=== PATIENT | female | born 1990 | race African-American/Black ===

== ENCOUNTER 2016-11-13 20:51 | Emergency (ER) | payer OTHER ==
[2016-11-13 21:03] VITALS: BP 115/79; BMI 26.4
[2016-11-13] MEDS ORDERED: ZOFRAN TAB 4 MG PO ONE ×2 (21:31→22:01)
--- NOTE | 2016-11-13 21:34 | DR.GENAD ---
HPI - Complaint/Symptoms Chief Complaint Doctors Comments: Became over heated at work with nausea and headach, achy now. Chief Complaint:: HEADACHE,NAUSEA,BODY ACHES - Source History Provided: Patient - Mode of Arrival Mode of Arrival: Ambulatory - Timing Onset of Chief Complaint: 11/13/16 Came on: Gradually - Duration Duration: Constant Duration: Hours - Location Location: all over - Severity Severity: Mild - Modifying Factors Worsens:: work in heat PMH - PMH Past Medical History: Yes Past Medical History: Anemia Past Surgical History: Yes Surgical History: Other - Family History History of Family Medical Conditions: Yes Family Medical History: Cancer - Social History Does patient currently use any type of tobacco product: No Have you used tobacco products in the last 12 months: No Type of Tobacco Use: None Does any household member use tobacco: No Alcohol Use: None Do you use any recreational Drugs:: No Lives With: Family Lives Where: Home - infectious screening In the last 2 months have you had wt loss of >10#?: NO Have you had fever, night sweats or hemotysis?: No Have you traveled outside the country in the last 6 months?: No Isolation: Standard ROS - Review of Systems Constitutional: No Symptoms Reported Eyes: No Symptoms Reported ENTM: No Symptoms Reported Respiratoy: No Symptoms Reported Cardiovascular: No Symptoms Reported Gastrointestinal/Abdominal: Nausea Genitourinary: No Symptoms Reported Neurological: Headache Musculoskeletal: Muscle Pain (achy) Integumentary: No Symptoms Reported Hematologic/Lymphatic: No Symptoms Reported Endocrine: No Symptoms Reported Psychiatric: No Symptoms Reported PE - Vital Signs Vitals: Temperature 98.3 F Pulse Rate 113 Respiratory Rate 18 Blood Pressure [Left Arm] 103/73 Blood Pressure 115/79 O2 Sat by Pulse Oximetry 100 - General Limitations: No Limitations General Appearance: Alert, In No Apparent Distress - Head Head Exam: Normal Inspection - Eyes Eye exam: Normal Appearance, EOMI. negative: Scleral Icterus, Conjunctival Injection - ENT ENT Exam: Normal Exam, Normal Oropharynx External Ear Exam: Normal External Inspection Nose Exam: Normal Nose Exam - Neck Neck Exam: Normal Inspection, Full ROM, Trachea Midline - Chest Chest Inspection: Normal Inspection - Respiratory Respiratory Exam: Normal Lung Sounds Bilat. negative: Accessory Muscle Use, Respiratory Distress Respiratory Exam: Bilateral Clear to Auscultation - Cardiovascular Cardiovascular Exam: Tachycardia - Abdominal Exam Abdominal Exam: Normal Inspection, Normal Bowel Sounds, Soft. negative: Distention, Tenderness - Back Back Exam: Normal Inspection, Full ROM. negative: Tenderness - Neurologic Neurological Exam: Alert, Oriented X3, CN II-XII Intact - Psychiatric Psychiatric Exam: Flat Affect - Skin Skin Exam: Intact, Normal Color ROR - Labs Reviewed Result Diagrams: 11/13/16 21:41 11/13/16 21:41 Laboratory: WBC 5.7 X10^3/uL (3.6-10.0) 11/13/16 21:41 RBC 4.74 X10^6/uL (3.5-5.4) 11/13/16 21:41 Hgb 13.9 g/dL (12.0-16.0) 11/13/16 21:41 Hct 40.7 % (36.0-47.0) 11/13/16 21:41 MCV 85.9 fL (80.0-100.0) 11/13/16 21:41 MCH 29.3 pg (27.0-34.0) 11/13/16 21:41 MCHC 34.2 g/dL (33.0-35.0) 11/13/16 21:41 RDW 13.4 % (11.6-16.5) 11/13/16 21:41 Plt Count 128 X10^3/uL (150.0-450.0) L 11/13/16 21:41 MPV 11.0 fL (7.4-11.0) 11/13/16 21:41 Neut % 82.2 % (42.0-75.0) H 11/13/16 21:41 Lymph % 11.3 % (21.0-51.0) L 11/13/16 21:41 [place] % 6.1 % (0.0-13.0) 11/13/16 21:41 Eos % 0.1 % (0.9-2.9) L 11/13/16 21:41 Baso % 0.3 % (0.2-1.0) 11/13/16 21:41 Neut # 4.7 x10^3/uL (2.2-4.8) 11/13/16 21:41 Lymph # 0.6 X10^3/uL (1.3-2.9) L 11/13/16 21:41 [place] # 0.3 x10^3/uL (0.3-0.8) 11/13/16 21:41 Eos # 0.0 x10^3/uL (0.0-0.2) 11/13/16 21:41 Baso # 0.0 X10^3/uL (0.0-0.1) 11/13/16 21:41 Absolute Nucleated RBC 0.0 /100WBC 11/13/16 21:41 Sodium 139 mmol/L (136-145) 11/13/16 21:41 Corrected Sodium TNP 11/13/16 21:41 Potassium 3.0 mmol/L (3.5-5.1) L* 11/13/16 21:41 Chloride 101 mmol/L (98-107) 11/13/16 21:41 Carbon Dioxide 24.2 mmol/L (21-32) 11/13/16 21:41 BUN 6 mg/dL (7-18) L 11/13/16 21:41 Creatinine 0.94 mg/dL (0.55-1.02) 11/13/16 21:41 Est GFR (MDRD) Af Amer > 60 (>60) 11/13/16 21:41 Est GFR (MDRD) Non-Af > 60 (>60) 11/13/16 21:41 Glucose 94 mg/dL (65-99) 11/13/16 21:41 Calcium 9.1 mg/dL (8.5-10.1) 11/13/16 21:41 Creatine Kinase 121 Units/L (26-192) 11/13/16 21:41 HCG, Qual Negative <10 mIU/mL 11/13/16 21:41 Specimen Type Clean catch urine 11/13/16 23:20 Urine Color Yellow (YELLOW) 11/13/16 23:20 Urine Appearance Slightly hazy (CLEAR) 11/13/16 23:20 Urine pH 6.0 (5.0 - 8.0) 11/13/16 23:20 Ur Specific [place] 1.015 (1.000-1.030) 11/13/16 23:20 Urine Protein Negative (NEGATIVE) 11/13/16 23:20 Urine Glucose (UA) Negative (NEGATIVE) 11/13/16 23:20 Urine Ketones 3+ (NEGATIVE) 11/13/16 23:20 Urine Occult Blood Negative (NEGATIVE) 11/13/16 23:20 Urine Nitrite Negative (NEGATIVE) 11/13/16 23:20 Urine Bilirubin Negative (NEGATIVE) 11/13/16 23:20 Urine Urobilinogen Normal (NORMAL) 11/13/16 23:20 Ur Leukocyte Esterase 3+ (NEGATIVE) 11/13/16 23:20 Urine RBC 0-2 /HPF (NEGATIVE) 11/13/16 23:20 Urine WBC 10-12 /HPF (NEGATIVE) 11/13/16 23:20 Ur Squamous Epith Cells Few /HPF (NEGATIVE) 11/13/16 23:20 Urine Bacteria 1+ /HPF (NEGATIVE) 11/13/16 23:20 Urine Mucus Few /HPF (NEGATIVE) 11/13/16 23:20 Ur Culture Indicated? Yes/culture set up 11/13/16 23:20 - Diagnosis Discharge Problem: Hypokalemia UTI (urinary tract infection) Qualifiers: Urinary tract infection type: acute cystitis Hematuria presence: with hematuria Qualified Code(s): N30.01 - Acute cystitis with hematuria - Discharge Plan Condition: Stable - Follow ups/Referrals Follow ups/Referrals: ,Misc [Primary Care Provider] - 3 days - Instructions
[2016-11-13 21:49] LABS: BASOPHILS % (AUTO) 0.3 % (0.2-1.0); EOSINOPHILS % (AUTO) 0.1 % (0.9-2.9); HEMATOCRIT 40.7 % (36.0-47.0); HEMOGLOBIN 13.9 g/dL (12.0-16.0); LYMPHOCYTES # (AUTO) 0.6 X10^3/uL (1.3-2.9); LYMPHOCYTES % (AUTO) 11.3 % (21.0-51.0); MEAN CORPUSCULAR HEMOGLOBIN 29.3 pg (27.0-34.0); MEAN CORPUSCULAR HGB CONC 34.2 g/dL (33.0-35.0); MEAN CORPUSCULAR VOLUME 85.9 fL (80.0-100.0); MONOCYTES # (AUTO) 0.3 x10^3/uL (0.3-0.8); MONOCYTES % (AUTO) 6.1 % (0.0-13.0); NEUTROPHILS # (AUTO) 4.7 x10^3/uL (2.2-4.8); NEUTROPHILS % (AUTO) 82.2 % (42.0-75.0); PLATELET COUNT 128 X10^3/uL (150.0-450.0); RED BLOOD COUNT 4.74 X10^6/uL (3.5-5.4); RED CELL DISTRIBUTION WIDTH 13.4 % (11.6-16.5); WHITE BLOOD COUNT 5.7 X10^3/uL (3.6-10.0)
[2016-11-13 21:55] LABS: BLOOD UREA NITROGEN 6 mg/dL (7-18); CALCIUM 9.1 mg/dL (8.5-10.1); CARBON DIOXIDE 24.2 mmol/L (21-32); CHLORIDE 101 mmol/L (98-107); CREATININE 0.94 mg/dL (0.55-1.02); GLUCOSE 94 mg/dL (65-99); SODIUM 139 mmol/L (136-145); eGFR BLACK RACES > 60 (>60); eGFR NON BLACK RACES > 60 (>60)
[2016-11-13 21:57] LABS: SERUM PREGNANCY TEST, QUAL NEGATIVE <10 mIU/mL
[2016-11-13 22:00] LABS: CREATINE KINASE 121 Units/L (26-192)
[2016-11-13] MEDS ORDERED: K-LYTE EFFERVESCENT PO ONE (22:03)
[2016-11-13] MEDS ORDERED: ZOFRAN TAB 4 MG ONE (22:26)
[2016-11-13 23:36] LABS: BILIRUBIN,URINE NEGATIVE (NEGATIVE); BLOOD/HEMOGLOBIN,URINE NEGATIVE (NEGATIVE); GLUCOSE, URINE NEGATIVE (NEGATIVE); KETONES,URINE 3+ (NEGATIVE); LEUKOCYTE ESTERASE ,URINE 3+ (NEGATIVE); NITRITES,URINE NEGATIVE (NEGATIVE); PROTEIN,URINE NEGATIVE (NEGATIVE); UROBILINOGEN,URINE NORMAL (NORMAL)
[2016-11-13 23:41] LABS: APPEARANCE,URINE SLIGHTLY HAZY (CLEAR); BACTERIA,URINE 1+ /HPF (NEGATIVE); COLOR,URINE YELLOW (YELLOW); MUCUS,URINE FEW /HPF (NEGATIVE); RBC,URINE 0-2 /HPF (NEGATIVE); SQUAMOUS EPITHELIAL CELL,UR FEW /HPF (NEGATIVE)
[2016-11-13] MEDS ORDERED: MACROBID CAP 100 MG EXT REL PO ONE ×2 (23:46→23:56)
== END 2016-11-14 00:04 | disposition home or self-care (01) ==
LOC: ER 21:03
DX: N30.01 Acute cystitis with hematuria (principal); E87.6 Hypokalemia
CPT/HCPCS: 36415; 80048; 81001; 82550; 84703; 85025; 87086; 99283; S0181

== ENCOUNTER 2017-08-02 16:18 | Emergency (ER) | payer OTHER ==
[2017-08-02 16:21] VITALS: BP 128/82; BMI 28.0
--- NOTE | 2017-08-02 17:45 | DR.GENAD ---
HPI - PCP Primary Care Physician: MERVAT - HPI Comment HPI Comment: FEELING WEAK ALSO. DENIES FEVER OR COUGH OR CONGESTION. NOT COUGHING. AT WORK SIMILAR ILLNESS NOTED. - Complaint/Symptoms Chief Complaint Doctors Comments: ABDOMINAL PAIN STATED FOR FEW DAYS. LAST NIGHT DIARRHEA STARTED AND N/V THIS AM. Chief Complaint:: PATIENT STATED THAT YESTERDAY SHE STARTED WITH N/V AND NOW DIAHERRIA. HAS STARTED ALONE WITH IT - Nurses notes reviewed Nurses Notes Review: Yes - Source History Provided: Patient - Mode of Arrival Mode of Arrival: Ambulatory - Timing Onset of Chief Complaint: 08/01/17 Came on: Suddenly - Duration Duration: Constant Duration: Days - Severity Severity: Moderate PMH - PMH Past Medical History: Yes Past Medical History: Anemia Past Surgical History: Yes Surgical History: Other - Family History History of Family Medical Conditions: Yes Family Medical History: Cancer - Social History Does any household member use tobacco: No Alcohol Use: Occasionally Do you use any recreational Drugs:: No Lives With: Family Lives Where: Home - infectious screening In the last 2 months have you had wt loss of >10#?: NO Have you had fever, night sweats or hemotysis?: No Have you traveled outside the country in the last 6 months?: No Isolation: Standard ROS - Review of Systems Constitutional: Weakness, Fatigue. negative: Chills, Fever Eyes: negative: Eye Pain, Discharge ENTM: No Symptoms Reported Respiratoy: No Symptoms Reported Cardiovascular: No Symptoms Reported Gastrointestinal/Abdominal: Abdominal Pain, Diarrhea, Nausea, Vomiting Genitourinary: No Symptoms Reported. negative: Dysuria Neurological: No Symptoms Reported Musculoskeletal: Muscle Pain Integumentary: No Symptoms Reported Hematologic/Lymphatic: No Symptoms Reported Endocrine: No Symptoms Reported All Other Systems: Reviewed and Negative PE - Vital Signs Vitals: Temperature 98.1 F Pulse Rate 85 Respiratory Rate 20 Blood Pressure [Left Arm] 103/73 Blood Pressure 128/82 O2 Sat by Pulse Oximetry 100 - General Limitations: No Limitations General Appearance: Alert - Head Head Exam: Normal Inspection - Eyes Eye exam: Normal Appearance - ENT ENT Exam: Normal External Ear Exam External Ear Exam: Normal External Inspection TM/Canal Exam: Bilateral Normal Nose Exam: Normal Nose Exam Mouth Exam: Normal Inspection Throat Exam: Normal Inspection - Neck Neck Exam: Trachea Midline - Chest Chest Inspection: Symmetric Chest Wall Rise - Respiratory Respiratory Exam: Normal Lung Sounds Bilat Respiratory Exam: Bilateral Clear to Auscultation - Cardiovascular Cardiovascular Exam: Regular Rate, Normal Rhythm, Normal Heart Sounds - Abdominal Exam Abdominal Exam: Normal Bowel Sounds, Soft, Tenderness Abdominal Tenderness: Diffuse, Mild - Extremities Extremities Exam: Normal Inspection - Back Back Exam: Normal Inspection - Neurologic Neurological Exam: Alert, Oriented X3 - Psychiatric Psychiatric Exam: Normal Affect, Normal Mood - Skin Skin Exam: Normal Color MDM - Differential Diagnosis Differential Diagnosis: GASTROENTERITIS, DEHYDRATION, BOWEL OBSTRUCTION, INFLUEZ , UTI Course - Treatment Treatment: SEE ORDERS. - Education/Counseling Education/Counseling: Patient, Education Educated On: Diagnosis, Needs for Follow Up ROR - Labs Reviewed Laboratory Results Reviewed?: Yes Result Diagrams: 08/02/17 17:54 08/02/17 17:54 Laboratory: WBC 4.8 X10^3/uL (3.6-10.0) 08/02/17 17:54 RBC 4.58 X10^6/uL (3.5-5.4) 08/02/17 17:54 Hgb 13.7 g/dL (12.0-16.0) 08/02/17 17:54 Hct 39.8 % (36.0-47.0) 08/02/17 17:54 MCV 86.9 fL (80.0-100.0) 08/02/17 17:54 MCH 29.8 pg (27.0-34.0) 08/02/17 17:54 MCHC 34.3 g/dL (33.0-35.0) 08/02/17 17:54 RDW 13.3 % (11.6-16.5) 08/02/17 17:54 Plt Count 147 X10^3/uL (150.0-450.0) L 08/02/17 17:54 MPV 10.5 fL (7.4-11.0) 08/02/17 17:54 Neut % 65.5 % (42.0-75.0) 08/02/17 17:54 Lymph % 25.4 % (21.0-51.0) 08/02/17 17:54 [place] % 7.8 % (0.0-13.0) 08/02/17 17:54 Eos % 0.9 % (0.9-2.9) 08/02/17 17:54 Baso % 0.4 % (0.2-1.0) 08/02/17 17:54 Neut # 3.1 x10^3/uL (2.2-4.8) 08/02/17 17:54 Lymph # 1.2 X10^3/uL (1.3-2.9) L 08/02/17 17:54 [place] # 0.4 x10^3/uL (0.3-0.8) 08/02/17 17:54 Eos # 0.0 x10^3/uL (0.0-0.2) 08/02/17 17:54 Baso # 0.0 X10^3/uL (0.0-0.1) 08/02/17 17:54 Absolute Nucleated RBC 0.0 /100WBC 08/02/17 17:54 Sodium 138 mmol/L (136-145) 08/02/17 17:54 Corrected Sodium TNP 08/02/17 17:54 Potassium 3.8 mmol/L (3.5-5.1) 08/02/17 17:54 Chloride 103 mmol/L (98-107) 08/02/17 17:54 Carbon Dioxide 27.6 mmol/L (21-32) 08/02/17 17:54 BUN 10 mg/dL (7-18) 08/02/17 17:54 Creatinine 0.80 mg/dL (0.55-1.02) 08/02/17 17:54 Est GFR (MDRD) Af Amer > 60 (>60) 08/02/17 17:54 Est GFR (MDRD) Non-Af > 60 (>60) 08/02/17 17:54 Glucose 91 mg/dL (65-99) 08/02/17 17:54 Calcium 8.6 mg/dL (8.5-10.1) 08/02/17 17:54 Corrected Calcium TNP 08/02/17 17:54 Total Bilirubin 0.50 mg/dL (0.2-1.0) 08/02/17 17:54 AST 13 Units/L (15-37) L 08/02/17 17:54 ALT 15 Units/L (12-78) 08/02/17 17:54 Alkaline Phosphatase 81 Units/L (46-116) 08/02/17 17:54 Total Protein 8.1 g/dL (6.4-8.2) 08/02/17 17:54 Albumin 3.7 g/dL (3.4-5.0) 08/02/17 17:54 Globulin 4.4 g/dL (2.5-4.5) 08/02/17 17:54 Albumin/Globulin Ratio 0.8 Ratio (1.1-2.1) L 08/02/17 17:54 Amylase 101 Units/L (25-115) 08/02/17 17:54 Lipase 135 Units/L (73-393) 08/02/17 17:54 Specimen Type Clean catch urine 08/02/17 18: Urine Color Yellow (YELLOW) 08/02/17 18: Urine Appearance Cloudy (CLEAR) 08/02/17 18: Urine pH 6.0 (5.0 - 8.0) 08/02/17 18: Ur Specific [place] 1.020 (1.000-1.030) 08/02/17 18: Urine Protein 1+ (NEGATIVE) 08/02/17 18: Urine Glucose (UA) Negative (NEGATIVE) 08/02/17 18: Urine Ketones Negative (NEGATIVE) 08/02/17 18: Urine Occult Blood 1+ (NEGATIVE) 08/02/17 18: Urine Nitrite Negative (NEGATIVE) 08/02/17 18: Urine Bilirubin Negative (NEGATIVE) 08/02/17 18: Urine Urobilinogen 2+ (NORMAL) 08/02/17 18:27 Ur Leukocyte Esterase 3+ (NEGATIVE) 08/02/17 18: Urine RBC 01 - 03 /HPF (NEGATIVE) 08/02/17 18: Urine WBC 50 - 75 with clumps /HPF (NEGATIVE) 08/02/17 18: Ur Squamous Epith Cells Many /HPF (NEGATIVE) 08/02/17 18: Amorphous Sediment Trace /HPF (NEGATIVE) 08/02/17 18: Urine Bacteria Trace /HPF (NEGATIVE) 08/02/17 18: Urine Mucus Moderate /HPF (NEGATIVE) 08/02/17 18: Ur Culture Indicated? Yes/culture set up 08/02/17 18: Influenza Type A (PCR) Negative (NEGATIVE) 08/02/17: Influenza Type B (PCR) Negative (NEGATIVE) 02/09/18 18:22 - XRAY XRAY Interpreted by: Radiologist XRAY Findings: report discuss with patient. - Diagnosis Discharge Problem: Gastroenteritis UTI (urinary tract infection) Qualifiers: Urinary tract infection type: site unspecified Hematuria presence: without hematuria Qualified Code(s): N39.0 - Urinary tract infection, site not specified Abdominal pain Qualifiers: Abdominal location: generalized Qualified Code(s): R10.84 - Generalized abdominal pain - Discharge Plan Disposition: HOME, SELF-CARE Condition: Stable Prescriptions: Diphenoxylate/Atropine [Lomotil] 1 tab PO TID #15 tab Ondansetron [Zofran ODT 8 mg] 8 mg PO Q8H PRN #12 tab PRN Reason: Nausea/Vomiting Sulfamethoxazole-Trimethoprim [BACTRIM DS TAB 800/160 MG *] 1 tab PO BID #20 tab - Follow ups/Referrals Follow ups/Referrals: LALO CROWELL [Primary Care Provider] - 3 days - Instructions Instructions: Viral Gastroenteritis, Adult, [id number], Urinary Tract Infection, Adult, [id number] Additional Instructions: RETURN TO ED IF WORSE.
[2017-08-02 18:01] LABS: BASOPHILS % (AUTO) 0.4 % (0.2-1.0); EOSINOPHILS % (AUTO) 0.9 % (0.9-2.9); HEMATOCRIT 39.8 % (36.0-47.0); HEMOGLOBIN 13.7 g/dL (12.0-16.0); LYMPHOCYTES # (AUTO) 1.2 X10^3/uL (1.3-2.9); LYMPHOCYTES % (AUTO) 25.4 % (21.0-51.0); MEAN CORPUSCULAR HEMOGLOBIN 29.8 pg (27.0-34.0); MEAN CORPUSCULAR HGB CONC 34.3 g/dL (33.0-35.0); MEAN CORPUSCULAR VOLUME 86.9 fL (80.0-100.0); MEAN PLATELET VOLUME 10.5 fL (7.4-11.0); MONOCYTES # (AUTO) 0.4 x10^3/uL (0.3-0.8); MONOCYTES % (AUTO) 7.8 % (0.0-13.0); NEUTROPHILS # (AUTO) 3.1 x10^3/uL (2.2-4.8); NEUTROPHILS % (AUTO) 65.5 % (42.0-75.0); PLATELET COUNT 147 X10^3/uL (150.0-450.0); RED BLOOD COUNT 4.58 X10^6/uL (3.5-5.4); RED CELL DISTRIBUTION WIDTH 13.3 % (11.6-16.5); WHITE BLOOD COUNT 4.8 X10^3/uL (3.6-10.0)
[2017-08-02 18:12] LABS: ALANINE AMINOTRANSFERASE 15 Units/L (12-78); ALBUMIN 3.7 g/dL (3.4-5.0); ALKALINE PHOSPHATASE 81 Units/L (46-116); AMYLASE 101 Units/L (25-115); ASPARTATE AMINO TRANSFERASE 13 Units/L (15-37); BLOOD UREA NITROGEN 10 mg/dL (7-18); CALCIUM 8.6 mg/dL (8.5-10.1); CARBON DIOXIDE 27.6 mmol/L (21-32); CHLORIDE 103 mmol/L (98-107); LIPASE 135 Units/L (73-393); SODIUM 138 mmol/L (136-145); TOTAL PROTEIN 8.1 g/dL (6.4-8.2); eGFR BLACK RACES > 60 (>60); eGFR NON BLACK RACES > 60 (>60)
[2017-08-02] MEDS ORDERED: ZOFRAN TAB 4 MG PO PRN (18:21)
[2017-08-02 18:50] LABS: BILIRUBIN,URINE NEGATIVE (NEGATIVE); BLOOD/HEMOGLOBIN,URINE 1+ (NEGATIVE); GLUCOSE, URINE NEGATIVE (NEGATIVE); KETONES,URINE NEGATIVE (NEGATIVE); LEUKOCYTE ESTERASE ,URINE 3+ (NEGATIVE); NITRITES,URINE NEGATIVE (NEGATIVE); PROTEIN,URINE 1+ (NEGATIVE); UROBILINOGEN,URINE 2+ (NORMAL)
[2017-08-02 19:00] LABS: APPEARANCE,URINE CLOUDY (CLEAR); COLOR,URINE YELLOW (YELLOW)
--- NOTE | 2017-08-02 19:00 | RAD ---
Abdominal series Indication: Abdominal pain. Conclusion: Bowel gas pattern is nonobstructive. No calcifications project over the renal silhouettes to suggest stones. Reported By:
[2017-08-02] MEDS ORDERED: ZOFRAN TAB 4 MG ONE (19:05)
[2017-08-02 19:11] LABS: AMORPHOUS SEDIMENT,UR TRACE /HPF (NEGATIVE); BACTERIA,URINE TRACE /HPF (NEGATIVE); MUCUS,URINE MODERATE /HPF (NEGATIVE); SQUAMOUS EPITHELIAL CELL,UR MANY /HPF (NEGATIVE)
[2017-08-02] MEDS ORDERED: BACTRIM DS TAB PO ONE ×2 (19:20→19:23)
== END 2017-08-02 19:32 | disposition home or self-care (01) ==
LOC: ER 16:40
DX: K52.89 Other specified noninfective gastroenteritis and colitis (principal); N39.0 Urinary tract infection, site not specified; R10.84 Generalized abdominal pain
CPT/HCPCS: 36415; 74022; 80053; 81001; 82150; 83690; 85025; 87086; 87502; 99283; S0181

== ENCOUNTER 2020-07-04 10:26 | Inpatient (IN) ==
[2020-07-04] MEDS ORDERED: D5LR 1L W PITOCIN 10 UNITS/L 10 UNITS/1,000 ML BAG IV PRN (10:33)
[2020-07-04] MEDS ORDERED: REGLAN INJ 10 MG VIAL IVP PRN (10:35)
[2020-07-04] MEDS ORDERED: PHENERGAN INJ 25 MG IM PRN ×2 (10:35→14:06)
[2020-07-04] MEDS ORDERED: PITOCIN IVP ONE (10:35)
[2020-07-04] MEDS ORDERED: AMPICILLIN VIAL 1 GRAM ONE (10:43)
[2020-07-04] MEDS ORDERED: NS 100 ML IV 100 ML IV ONE (10:44)
[2020-07-04 10:56] LABS: BASOPHILS # (AUTO) 0.1 X10^3/uL (0.0-0.1); BASOPHILS % (AUTO) 0.9 % (0.2-1.0); EOSINOPHILS % (AUTO) 0.3 % (0.9-2.9); HEMATOCRIT 32.4 % (36.0-47.0); LYMPHOCYTES # (AUTO) 1.9 X10^3/uL (1.3-2.9); MEAN CORPUSCULAR HEMOGLOBIN 29.1 pg (27.0-34.0); MEAN CORPUSCULAR HGB CONC 33.9 g/dL (33.0-35.0); MEAN PLATELET VOLUME 9.1 fL (7.4-11.0); MONOCYTES # (AUTO) 0.5 x10^3/uL (0.3-0.8); MONOCYTES % (AUTO) 7.1 % (0.0-13.0); NEUTROPHILS % (AUTO) 66.7 % (42.0-75.0); PLATELET COUNT 130 X10^3/uL (150.0-450.0); RED BLOOD COUNT 3.77 X10^6/uL (3.5-5.4); RED CELL DISTRIBUTION WIDTH 14.8 % (11.6-16.5); WHITE BLOOD COUNT 7.5 X10^3/uL (3.6-10.0)
[2020-07-04] MEDS ORDERED: D5 1/2 NS 1000 ML 1,000 ML IV SCH (11:00)
[2020-07-04] MEDS ORDERED: AMPICILLIN VIAL 2 GRAM 2 G in NS 100 ML IV + SPIKE MINIBAG* 100 ML IV SCH (11:00)
[2020-07-04] MEDS ORDERED: FENTANYL INJ 100 mcg ONE (11:11)
[2020-07-04] MEDS ORDERED: LR 1000 ML IV 1,000 ML IV ONE (11:11)
[2020-07-04] MEDS ORDERED: NAROPIN EPIDURAL 0.2% 100 ML ONE (11:12)
[2020-07-04 11:32] LABS: BLOOD UREA NITROGEN 3 mg/dL (7-18); CALCIUM 9.1 mg/dL (8.5-10.1); CARBON DIOXIDE 23.1 mmol/L (21-32); CHLORIDE 105 mmol/L (98-107); CREATININE 0.55 mg/dL (0.55-1.02); SODIUM 140 mmol/L (136-145); eGFR NON BLACK RACES > 60 (>60)
[2020-07-04] MEDS ORDERED: D5 1/2 NS 1000 ML 1,000 ML IV ONE (12:04)
[2020-07-04] MEDS ORDERED: D5 1/2 NS 1L W PITOCIN 20 UNITS/L 20 UNITS/1,000 ML BAG IV ONE (12:05)
[2020-07-04] MEDS ORDERED: BETADINE SOLN ONE (12:05)
[2020-07-04 12:54] LABS: BILIRUBIN,URINE NEGATIVE (NEGATIVE); BLOOD/HEMOGLOBIN,URINE 3+ (NEGATIVE); GLUCOSE, URINE NEGATIVE (NEGATIVE); KETONES,URINE NEGATIVE (NEGATIVE); LEUKOCYTE ESTERASE ,URINE NEGATIVE (NEGATIVE); NITRITES,URINE NEGATIVE (NEGATIVE); PROTEIN,URINE NEGATIVE (NEGATIVE); UROBILINOGEN,URINE NORMAL (NORMAL)
[2020-07-04 13:11] LABS: APPEARANCE,URINE CLEAR (CLEAR); COLOR,URINE YELLOW (YELLOW)
[2020-07-04 13:12] LABS: BACTERIA,URINE NEGATIVE /HPF (NEGATIVE); SQUAMOUS EPITHELIAL CELL,UR NEGATIVE /HPF (NEGATIVE)
[2020-07-04] MEDS ORDERED: AMPICILLIN VIAL 1 GRAM 1 G in NS 50 ML IV + SPIKE MINIBAG* 50 ML IV SCH (14:36)
[2020-07-04] MEDS ORDERED: DERMOPLAST PAIN RELIEF SPRAY TOP PRN (14:57)
[2020-07-04] MEDS ORDERED: AMBIEN PO PRN (14:57)
[2020-07-04] MEDS ORDERED: MILK OF MAGNESIA PO PRN (14:57)
[2020-07-04] MEDS ORDERED: D5 1/2 NS 1000 ML 1,000 ML with PITOCIN 20 UNITS IV SCH ×2 (15:00)
[2020-07-04] MEDS: MOTRIN TAB 800 MG PO PRN (21:51)
[2020-07-05 07:39] LABS: HEMATOCRIT 28.3 % (36.0-47.0); HEMOGLOBIN 9.6 g/dL (12.0-16.0)
[2020-07-05] MEDS ORDERED: NS 100 ML IV 100 ML with VENOFER 400 MG IV NR ×2 (08:37)
[2020-07-05] MEDS ORDERED: PRENATAL PLUS PO SCH (09:00)
[2020-07-05] MEDS: MOTRIN TAB 800 MG PO PRN (11:08)
[2020-07-05 12:17] VITALS: BP 110/67
== END 2020-07-05 16:10 | disposition home or self-care (01) | DRG 807 ==
LOC: LD 10:26 → MED/SURG 15:48
PROVIDERS: ADMIT Obstetrics & Gynecology Obstetrics; ATTEND Obstetrics & Gynecology Obstetrics
DX: O80 Encounter for full-term uncomplicated delivery; Z37.0 Single live birth; Z20.822 Contact with and (suspected) exposure to COVID-19; Z3A.40 40 weeks gestation of pregnancy

== ENCOUNTER 2023-09-26 12:37 | Observation (INO) ==
[2023-09-26 12:54] VITALS: BMI 34.0
--- NOTE | 2023-09-26 13:15 | ED.ABDFE ---
HPI Time Seen Time Seen by Provider: 09/26/23 13:15 PCP Primary Care Physician: Daria Davis Complaint Doctors Chief Complaint Comments: 33-year-old female presents for evaluation. Patient developed abdominal pain in the early a.m. hours, approximately 4 AM. Went to bed okay, but she could not get comfortable could not sleep. Sharp pain woke her up, located central abdomen to the right lower quadrant abdomen. Pain is persistent, sharp, does not radiate. Is associated with some nausea, but no vomiting or diarrhea. Moved her bowels this a.m., no diarrhea. Pain worse with movement and palpation, nothing makes it better. Denies fever, chills, URI symptoms. No urinary issues.. Patient with similar presentation in the past, told she had constipation. Patient has irregular menses, has a history of ectopic , has had her tubes tied. Chief Complaint:: Patient states that she has been having abdominal pain that she rates a 10/10 on the pain scale. This pain has been present since last night, and she states that the pain is mostly present in the middle portion of her abdomen. She denies having loose stools or any other symptoms. COVID-19 Coronavirus risk:travel/contact w/high risk person: No Has patient experienced Coronavirus symptoms: No Reviewed Nurses Notes Review: Yes Source History Provided: Patient Mode of arrival Mode of Arrival: Ambulatory Timing Onset of Chief Complaint: 09/25/23 PMH PMH Past Medical History: Yes Past Medical History: Anemia and Dyslipidemia Past Surgical History: Yes Surgical History: Other Family History History of Family Medical Conditions: Yes Family Medical History: Diabetes Mellitus and Cancer Social History Does patient currently use any type of tobacco product: No Have you used tobacco products in the last 12 months: No Type of Tobacco Use: None Does any household member use tobacco: No Alcohol Use: Occasionally Do you use any recreational Drugs:: No Lives With: Family Lives Where: Home Travel Risk Coronavirus risk:travel/contact w/high risk person: No Has patient experienced Coronavirus symptoms: No Infectious screening In the last 2 months have you had wt loss of >10#?: NO Have you had fever, night sweats or hemotysis?: No Have you traveled outside the country in the last 6 months?: No Isolation: Standard ROS Review of Systems Constitutional: No Symptoms Reported Eyes: No Symptoms Reported ENTM: No Symptoms Reported Respiratoy: No Symptoms Reported Cardiovascular: No Symptoms Reported Gastrointestinal/Abdominal: See HPI Genitourinary: No Symptoms Reported Neurological: No Symptoms Reported Musculoskeletal: No Symptoms Reported Integumentary: No Symptoms Reported Hematologic/Lymphatic: No Symptoms Reported All Other Systems: Reviewed and Negative PE Vital Signs Vitals: Vital Signs Temperature 98.2 F Pulse Rate 78 Respiratory Rate 18 Respiratory Rate 22 Respiratory Rate 18 Blood Pressure 146/97 O2 Sat by Pulse Oximetry 100 General General Appearance: Alert and Other (Appears uncomfortable) Eyes Eye exam: PERRL and EOMI ENT ENT Exam: Mucous Membranes Moist Neck Neck Exam: Normal Inspection Respiratory Respiratory Exam: Normal Lung Sounds Bilat; negative Accessory Muscle Use or Respiratory Distress Cardiovascular Cardiovascular Exam: Regular Rate, Normal Rhythm and Normal Heart Sounds Abdominal Exam Abdominal Exam: Normal Bowel Sounds, Soft and Tenderness (Right lower quadrant, with some guarding, no rebound) Back Back Exam: Normal Inspection; negative (R) CVA Tenderness or (L) CVA Tenderness Extremeties Extremities Exam: Normal Inspection; negative Edema Neurologic Neurological Exam: Alert, Oriented X3 and CN II-XII Intact; negative Motor Sensory Deficit Skin Skin Exam: Warm and Dry COURSE Treatment Treatment: 33-year-old female with abdominal pain since early a.m. hours. Workup initiated. Patient given IV fluids, IV Toradol. 1607 -patient still uncomfortable in the right side. No true Reyes sign. CBC, CMP, lipase all normal. Urinalysis a bit dirty, no obvious infection. hCG was negative. CT of the abdomen pelvis with IV contrast did not show any significant abnormalities of the right lower quadrant, and does have cholelithiasis present. Will obtain a gallbladder ultrasound to rule out signs for cholecystitis. Patient given IV morphine/Zofran now. Pt resting, stenciling machine tender, RUQ. GB US concerning for cholecystitis. Has gallbladder wall thickening at 5 mm, slight fluid around it, an a stone near the surgical neck. Discussed with surgery, Dr. Burnett, he will admit the patient for IV fluids, antibiotics, and anticipate cholecystectomy in the near future. ROR Labs Reviewed Laboratory Results Reviewed?: Yes 09/26/23 13:53 09/26/23 13:53 Laboratory: WBC 6.7 X10^3/uL (3.6-10.0) 09/26/23 13:53 RBC 4.44 X10^6/uL (3.5-5.4) 09/26/23 13:53 Hgb 12.8 g/dL (12.0-16.0) 09/26/23 13:53 Hct 38.6 % (36.0-47.0) 09/26/23 13:53 MCV 87.0 fL (80.0-100.0) 09/26/23 13:53 MCH 28.8 pg (27.0-34.0) 09/26/23 13:53 MCHC 33.1 g/dL (33.0-35.0) 09/26/23 13:53 RDW 13.4 % (11.6-16.5) 09/26/23 13:53 Plt Count 186 X10^3/uL (150.0-450.0) 09/26/23 13:53 MPV 10.2 fL (7.4-11.0) 09/26/23 13:53 Neut % (Auto) 48.7 % (42.0-75.0) 09/26/23 13:53 Lymph % (Auto) 43.1 % (21.0-51.0) 09/26/23 13:53 [place] % (Auto) 6.5 % (0.0-13.0) 09/26/23 13:53 Eos % (Auto) 0.8 % (0.9-2.9) L 09/26/23 13:53 Baso % (Auto) 0.9 % (0.2-1.0) 09/26/23 13:53 Neut # (Auto) 3.3 x10^3/uL (2.2-4.8) 09/26/23 13:53 Lymph # (Auto) 2.9 X10^3/uL (1.3-2.9) 09/26/23 13:53 [place] # (Auto) 0.4 x10^3/uL (0.3-0.8) 09/26/23 13:53 Eos # (Auto) 0.1 x10^3/uL (0.0-0.2) 09/26/23 13:53 Baso # (Auto) 0.1 X10^3/uL (0.0-0.1) 09/26/23 13:53 Absolute Nucleated RBC 0.0 /100WBC 09/26/23 13:53 Sodium 140 mmol/L (136-145) 09/26/23 13:53 Corrected Sodium TNP 09/26/23 13:53 Potassium 3.7 mmol/L (3.5-5.1) 09/26/23 13:53 Chloride 103 mmol/L (98-107) 09/26/23 13:53 Carbon Dioxide 29.8 mmol/L (21-32) 09/26/23 13:53 BUN 8 mg/dL (7-18) 09/26/23 13:53 Creatinine 0.77 mg/dL (0.55-1.02) 09/26/23 13:53 Est GFR (MDRD) Af Amer > 60 (>60) 09/26/23 13:53 Est GFR (MDRD) Non-Af > 60 (>60) 09/26/23 13:53 Glucose 109 mg/dL (65-99) H 09/26/23 13:53 Calcium 9.0 mg/dL (8.5-10.1) 09/26/23 13:53 Corrected Calcium 9.7 mg/dL (8.5-10.1) 09/26/23 13:53 Magnesium 2.0 mg/dL (2.0-2.9) 09/26/23 13:53 Total Bilirubin 0.30 mg/dL (0.2-1.0) 09/26/23 13:53 AST 9 Units/L (15-37) L 09/26/23 13:53 ALT 12 Units/L (12-78) 09/26/23 13:53 Alkaline Phosphatase 76 Units/L (46-116) 09/26/23 13:53 Total Protein 7.3 g/dL (6.4-8.2) 09/26/23 13:53 Albumin 3.1 g/dL (3.4-5.0) L 09/26/23 13:53 Globulin 4.2 g/dL (2.5-4.5) 09/26/23 13:53 Albumin/Globulin Ratio 0.7 Ratio (1.1-2.1) L 09/26/23 13:53 Lipase 39 Units/L (16-77) 09/26/23 13:53 HCG, Qual Negative <10 mIU/mL 09/26/23 13:53 Specimen Type Catherized urine 09/26/23 14:13 Urine Color Pale yellow (YELLOW) 09/26/23 14:13 Urine Appearance Clear (CLEAR) 09/26/23 14:13 Urine pH 7.0 (5.0 - 8.0) 09/26/23 14:13 Ur Specific [place] 1.015 (1.000-1.030) 09/26/23 14:13 Urine Protein Negative (NEGATIVE) 09/26/23 14:13 Urine Glucose (UA) Negative (NEGATIVE) 09/26/23 14:13 Urine Ketones Negative (NEGATIVE) 09/26/23 14:13 Urine Blood Negative (NEGATIVE) 09/26/23 14:13 Urine Nitrite Negative (NEGATIVE) 09/26/23 14:13 Urine Bilirubin Negative (NEGATIVE) 09/26/23 14:13 Urine Urobilinogen Normal (NORMAL) 09/26/23 14:13 Ur Leukocyte Esterase 1+ (NEGATIVE) 09/26/23 14:13 Urine RBC 0-2 /HPF (0-3) 09/26/23 14:13 Urine WBC 3-5 /HPF (0-5) 09/26/23 14:13 Ur Squamous Epith Cells Moderate /HPF (NEGATIVE) 09/26/23 14:13 Urine Bacteria Trace /HPF (NEGATIVE) 09/26/23 14:13 Ur Culture Indicated? No/not indicated 09/26/23 14:13 XRAY XRAY Interpreted by: Both X-ray Results: EXAM: CT ABDOMEN AND PELVIS WITH CONTRAST HISTORY: RLQ PAIN; COMPARISON: None TECHNIQUE: Axial images were acquired of the abdomen and pelvis with IV contrast. Sagittal and coronal reformatted images were provided. All images were reviewed in a variety of windows and levels. RADIATION REDUCTION TECHNIQUE: Automated exposure control, adjustment of the mA and/or kV according to patient size, or iterative reconstruction techniques were used. FINDINGS: LOWER THORAX: The visualized lower lung zones are clear. The heart size is within normal limits. There is no evidence of a pericardial effusion. LIVER: No intrahepatic focal lesions are seen. No evidence of intrahepatic or extrahepatic duct dilation. GALLBLADDER: Cholelithiasis. There is mild gallbladder wall thickening and/or mild pericholecystic fluid. SPLEEN: The spleen enhances homogenously and is unremarkable. PANCREAS: The pancreas enhances homogenously and is unremarkable. ADRENAL GLANDS: The adrenal glands enhance homogenously and are unremarkable. : The kidneys enhance homogenously. Their collecting system is of normal caliber. URINARY BLADDER: The urinary bladder is unremarkable. There are no soft tissue masses seen in the urinary bladder. VESSELS: The abdominal aorta is normal in size without evidence of aneurysm or dissection. The celiac artery, superior mesenteric artery, [place] renal arteries, and inferior mesenteric artery are patent. GI: The stomach and small bowel is unremarkable. There are no inflammatory changes seen in the right lower quadrant to suggest secondary signs of acute appendicitis. Normal appendix right lower quadrant. LYMPHNODES AND MESENTERY: There is no evidence of retroperitoneal lymphadenopat hy. The uterus is present. Small fat containing umbilical hernia. BONES: The visualized bones demonstrate degenerative changes. There are no concerning lytic or blastic lesions identified. IMPRESSION: Cholelithiasis with mild gallbladder wall thickening and/or mild pericholecystic fluid. If patient has symptoms referable to the right upper quadrant, gallbladder sonogram may be helpful in further evaluation. THIS IS AN ELECTRONICALLY VERIFIED FINAL REPORT 09/26/2023 3:26 PM - Electronically signed by Anuj Krishna MD EXAM: GALL BLADDER HISTORY: RUQ PAIN, ABNORMAL CT; COMPARISON: None available. TECHNIQUE: Multiple smith scale images were obtained of the abdomen were obtained. FINDINGS: No peripancreatic fluid is identified. The visualized portions of the pancreas are normal in size and echogenicity. The right kidney is normal in size and echogenicity without evidence of hydronephrosis. The right kidney measures 10.75 cm in length. Liver echogenicity is predominantly homogeneous. The common bile duct diameter is 4 mm. There is no intrahepatic biliary dilatation identified. No focal hepatic lesions are observed. There is evidence of cholelithiasis. A shadowing stone is identified at the neck of the gallbladder. The gallbladder is mildly distended with trace pericholecystic fluid. The gallbladder wall thickness is estimated at 5 mm which is also abnormal. It is unknown if the Reyes's sign is positive. No free fluid is identified within the right upper quadrant. IMPRESSION: Cholelithiasis with sonographic features raising concern for evolving ch olecystitis. Clinical correlation is needed. THIS IS AN ELECTRONICALLY VERIFIED FINAL REPORT 09/26/2023 4:45 PM - Electronically signed by Deejay Novak MD Opioid Opioid Risk Tool Age (Azam box if 16-45): Yes History of Preadolescent Sexual Abuse: No Total: 1 Total Score Risk Category: Low Risk Copyright: Wilmer PASCAL predicting aberrant behaviors Discharge Plan Diagnosis Discharge Problem: Acute cholecystitis Discharge Plan Patient Disposition: 09 ADMITTED INPATIENT Condition: Stable
[2023-09-26] MEDS ORDERED: ZOFRAN INJ 4 MG VIAL ONE ×2 (13:35→16:03)
[2023-09-26] MEDS: NS 1,000 ML IV 1,000 ML IV ONE (13:41)
[2023-09-26] MEDS: TORADOL 30 MG VIAL IVP ONE (13:41)
[2023-09-26] MEDS: ZOFRAN INJ 4 MG VIAL IVP ONE ×2 (13:41→16:06)
[2023-09-26 14:04] LABS: BASOPHILS # (AUTO) 0.1 X10^3/uL (0.0-0.1); BASOPHILS % (AUTO) 0.9 % (0.2-1.0); EOSINOPHILS # (AUTO) 0.1 x10^3/uL (0.0-0.2); EOSINOPHILS % (AUTO) 0.8 % (0.9-2.9); HEMATOCRIT 38.6 % (36.0-47.0); HEMOGLOBIN 12.8 g/dL (12.0-16.0); LYMPHOCYTES # (AUTO) 2.9 X10^3/uL (1.3-2.9); LYMPHOCYTES % (AUTO) 43.1 % (21.0-51.0); MEAN CORPUSCULAR HEMOGLOBIN 28.8 pg (27.0-34.0); MEAN CORPUSCULAR HGB CONC 33.1 g/dL (33.0-35.0); MEAN PLATELET VOLUME 10.2 fL (7.4-11.0); MONOCYTES # (AUTO) 0.4 x10^3/uL (0.3-0.8); MONOCYTES % (AUTO) 6.5 % (0.0-13.0); NEUTROPHILS # (AUTO) 3.3 x10^3/uL (2.2-4.8); NEUTROPHILS % (AUTO) 48.7 % (42.0-75.0); PLATELET COUNT 186 X10^3/uL (150.0-450.0); RED BLOOD COUNT 4.44 X10^6/uL (3.5-5.4); RED CELL DISTRIBUTION WIDTH 13.4 % (11.6-16.5); WHITE BLOOD COUNT 6.7 X10^3/uL (3.6-10.0)
[2023-09-26 14:17] LABS: ALANINE AMINOTRANSFERASE 12 Units/L (12-78); ALBUMIN 3.1 g/dL (3.4-5.0); ALKALINE PHOSPHATASE 76 Units/L (46-116); ASPARTATE AMINO TRANSFERASE 9 Units/L (15-37); BLOOD UREA NITROGEN 8 mg/dL (7-18); CARBON DIOXIDE 29.8 mmol/L (21-32); CHLORIDE 103 mmol/L (98-107); COR CA(FOR HYPOALB) 9.7 mg/dL (8.5-10.1); CREATININE 0.77 mg/dL (0.55-1.02); GLUCOSE 109 mg/dL (65-99); LIPASE 39 Units/L (16-77); POTASSIUM 3.7 mmol/L (3.5-5.1); SERUM PREGNANCY TEST, QUAL NEGATIVE <10 mIU/mL; SODIUM 140 mmol/L (136-145); TOTAL PROTEIN 7.3 g/dL (6.4-8.2); eGFR NON BLACK RACES > 60 (>60)
[2023-09-26 14:33] LABS: BILIRUBIN,URINE NEGATIVE (NEGATIVE); BLOOD/HEMOGLOBIN,URINE NEGATIVE (NEGATIVE); GLUCOSE, URINE NEGATIVE (NEGATIVE); KETONES,URINE NEGATIVE (NEGATIVE); LEUKOCYTE ESTERASE ,URINE 1+ (NEGATIVE); NITRITES,URINE NEGATIVE (NEGATIVE); PROTEIN,URINE NEGATIVE (NEGATIVE); UROBILINOGEN,URINE NORMAL (NORMAL)
[2023-09-26 15:02] LABS: APPEARANCE,URINE CLEAR (CLEAR); BACTERIA,URINE TRACE /HPF (NEGATIVE); COLOR,URINE PALE YELLOW (YELLOW); RBC,URINE 0-2 /HPF (0-3); SQUAMOUS EPITHELIAL CELL,UR MODERATE /HPF (NEGATIVE)
--- NOTE | 2023-09-26 15:29 | CT ---
EXAM:CT ABDOMEN AND PELVIS WITH CONTRASTHISTORY:RLQ PAIN;COMPARISON:NoneTECHNIQUE:Axial images were acquired of the abdomen and pelvis with IV contrast. Sagittal and coronal reformatted images were provided. All images were reviewed in a variety of windows and levels.RADIATION REDUCTION TECHNIQUE: Automated exposure control, adjustment of the mA and/or kV according to patient size, or iterative reconstruction techniques were used.FINDINGS:LOWER THORAX: The visualized lower lung zones are clear. The heart size is within normal limits. There is no evidence of a pericardial effusion.LIVER: No intrahepatic focal lesions are seen. No evidence of intrahepatic or extrahepatic duct dilation.GALLBLADDER: Cholelithiasis. There is mild gallbladder wall thickening and/or mild pericholecystic fluid.SPLEEN: The spleen enhances homogenously and is unremarkable.PANCREAS: The pancreas enhances homogenously and is unremarkable.ADRENAL GLANDS: The adrenal glands enhance homogenously and are unremarkable.: The kidneys enhance homogenously. Their collecting system is of normal caliber.URINARY BLADDER: The urinary bladder is unremarkable. There are no soft tissue masses seen in the urinary bladder.VESSELS: The abdominal aorta is normal in size without evidence of aneurysm or dissection. The celiac artery, superior mesenteric artery, [place] renal arteries, and inferior mesenteric artery are patent.GI: The stomach and small bowel is unremarkable. There are no inflammatory changes seen in the right lower quadrant to suggest secondary signs of acute appendicitis. Normal appendix right lower quadrant.LYMPHNODES AND MESENTERY: There is no evidence of retroperitoneal lymphadenopathy. The uterus is present. Small fat containing umbilical hernia.BONES: The visualized bones demonstrate degenerative changes. There are no concerning lytic or blastic lesions identified.IMPRESSION:Cholelithiasis with mild gallbladder wall thickening and/or mild pericholecystic fluid. If patient has symptoms referable to the right upper quadrant, gallbladder sonogram may be helpful in further evaluation.THIS IS AN ELECTRONICALLY VERIFIED FINAL REPORT09/26/2023 3:26 PM - Electronically signed by Anuj Krishna MD
[2023-09-26] MEDS: MORPHINE SULFATE INJ 4 MG IVP ONE (16:06)
--- NOTE | 2023-09-26 16:48 | US ---
EXAM:GALL BLADDERHISTORY:RUQ PAIN, ABNORMAL CT;COMPARISON:None available.TECHNIQUE:Multiple smith scale images were obtained of the abdomen were obtained.FINDINGS:No peripancreatic fluid is identified. The visualized portions of the pancreas are normal in size and echogenicity.The right kidney is normal in size and echogenicity without evidence of hydronephrosis. The right kidney measures 10.75 cm in length.Liver echogenicity is predominantly homogeneous. The common bile duct diameter is 4 mm. There is no intrahepatic biliary dilatation identified. No focal hepatic lesions are observed.There is evidence of cholelithiasis. A shadowing stone is identified at the neck of the gallbladder. The gallbladder is mildly distended with trace pericholecystic fluid. The gallbladder wall thickness is estimated at 5 mm which is also abnormal. It is unknown if the Reyes's sign is positive. No free fluid is identified within the right upper quadrant.IMPRESSION:Cholelithiasis with sonographic features raising concern for evolving cholecystitis. Clinical correlation is needed.THIS IS AN ELECTRONICALLY VERIFIED FINAL REPORT09/26/2023 4:45 PM - Electronically signed by Deejay Novak MD
[2023-09-26] MEDS ORDERED: CONSULT PHARMACY - POTASSIUM & MAGNESIUM XX SCH (18:00)
--- NOTE | 2023-09-26 18:05 | EKG ---
Test Reason : Preop clearance Blood Pressure : */* mmHG Vent. Rate : 71 BPM Atrial Rate : 71 BPM P-R Int : 126 ms QRS Dur : 76 ms QT Int : 402 ms P-R-T Axes : 43 53 47 degrees QTc Int : 436 ms Normal sinus rhythm Normal ECG No previous ECGs available Confirmed by Richy Thompson MD ([id number]) on 09/27/2023 7:46:24 AM Referred By: Confirmed By: Richy Thompson MD
[2023-09-26] MEDS ORDERED: NS 250 ML IV 250 ML IV ONE (18:26)
[2023-09-26] MEDS: D5 NS 1,000 ML IV 1,000 ML IV SCH (18:38)
[2023-09-26] MEDS: ZOFRAN INJ 4 MG VIAL IVP SCH (18:38)
[2023-09-26] MEDS: ZOSYN VIAL 3.375 GRAMS 3.375 G in NS 100 ML IV 100 ML IV SCH (18:39)
[2023-09-26] MEDS: NS 250 ML IV 25 ML IV PRN (18:43)
[2023-09-26] MEDS: NS 1,000 ML IV 1,000 ML ONE (18:46)
[2023-09-26] MEDS: TORADOL 30 MG VIAL ONE (18:47)
[2023-09-26] MEDS: OMNIPAQUE 350 mg/mL 100 mL BTL 100 ML ONE (18:47)
[2023-09-26] MEDS: MORPHINE SULFATE INJ 4 MG ONE (18:48)
[2023-09-26] MEDS ORDERED: MORPHINE SULFATE INJ 4 MG IVP PRN (19:03)
[2023-09-26] MEDS: NS 1/2 + KCL 20 MEQ/L 1,000 ML IV SCH (21:06)
[2023-09-27] MEDS: HIBICLENS WASH EXT ONE (03:59)
[2023-09-27] MEDS: ZOSYN VIAL 3.375 GRAMS 3.375 G in NS 100 ML IV 100 ML IV SCH (05:15)
[2023-09-27 05:23] LABS: BASOPHILS % (AUTO) 0.6 % (0.2-1.0); EOSINOPHILS # (AUTO) 0.1 x10^3/uL (0.0-0.2); EOSINOPHILS % (AUTO) 1.3 % (0.9-2.9); HEMOGLOBIN 11.2 g/dL (12.0-16.0); LYMPHOCYTES # (AUTO) 1.5 X10^3/uL (1.3-2.9); LYMPHOCYTES % (AUTO) 30.2 % (21.0-51.0); MEAN CORPUSCULAR HEMOGLOBIN 28.8 pg (27.0-34.0); MEAN CORPUSCULAR HGB CONC 33.1 g/dL (33.0-35.0); MEAN CORPUSCULAR VOLUME 87.2 fL (80.0-100.0); MONOCYTES # (AUTO) 0.4 x10^3/uL (0.3-0.8); MONOCYTES % (AUTO) 7.8 % (0.0-13.0); NEUTROPHILS # (AUTO) 3.1 x10^3/uL (2.2-4.8); NEUTROPHILS % (AUTO) 60.1 % (42.0-75.0); PLATELET COUNT 169 X10^3/uL (150.0-450.0); RED CELL DISTRIBUTION WIDTH 13.4 % (11.6-16.5); WHITE BLOOD COUNT 5.1 X10^3/uL (3.6-10.0)
[2023-09-27 05:35] LABS: ALANINE AMINOTRANSFERASE 9 Units/L (12-78); ALBUMIN 2.4 g/dL (3.4-5.0); ALKALINE PHOSPHATASE 60 Units/L (46-116); ASPARTATE AMINO TRANSFERASE 10 Units/L (15-37); BLOOD UREA NITROGEN 4 mg/dL (7-18); CARBON DIOXIDE 29.2 mmol/L (21-32); CHLORIDE 107 mmol/L (98-107); COR CA(FOR HYPOALB) 9.3 mg/dL (8.5-10.1); CREATININE 0.77 mg/dL (0.55-1.02); GLUCOSE 108 mg/dL (65-99); POTASSIUM 3.7 mmol/L (3.5-5.1); SODIUM 141 mmol/L (136-145); TOTAL PROTEIN 5.9 g/dL (6.4-8.2); eGFR NON BLACK RACES > 60 (>60)
[2023-09-27] MEDS ORDERED: CONSULT PHARMACY - POTASSIUM & MAGNESIUM XX SCH (07:00)
--- NOTE | 2023-09-27 07:36 | RAD ---
EXAM:CHEST, 1 VIEWHISTORY:PRE OP GALLBLADDER;COMPARISON:No relevant prior studies were available for comparison at the time of interpretation.TECHNIQUE:CHEST, 1 VIEWFINDINGS:Chest:Lines and tubes: NoneMediastinum: Cardiac and mediastinal shadow is within normal limits for size and contour.Pulmonary vessels: No pulmonary vascular congestion.Lung [place]: No suspicious airspace opacity.Pleura: No effusion. No pneumothorax.Bones and soft tissues: No acute osseous or soft tissue abnormality.IMPRESSION:1. No acute cardiopulmonary abnormalityTHIS IS AN ELECTRONICALLY VERIFIED FINAL REPORT09/27/2023 7:33 AM - Electronically signed by Mina Hauser MD
[2023-09-27] MEDS ORDERED: MAGNESIUM SULFATE 1 GRAM/100 mL PREMIX 1 G/100 ML BAG IV SCH (09:00)
[2023-09-27] MEDS ORDERED: K-RIDER 10 MEQ/100 ML WATER 10 MEQ/100 ML BAG IV SCH (09:00)
[2023-09-27] MEDS: LR 1,000 ML IV 1,000 ML IV ONE (09:44)
[2023-09-27] MEDS: ANCEF VIAL 1 GRAM ONE (10:00)
[2023-09-27] MEDS: NS 100 ML IV 100 ML ONE (10:00)
[2023-09-27] MEDS: PEPCID 20 MG VIAL ONE (10:12)
[2023-09-27] MEDS: DIPRIVAN VIAL 20 ML ONE (10:12)
[2023-09-27] MEDS: BRIDION ONE (10:12)
[2023-09-27] MEDS: FENTANYL VIAL INJ 250 mcg ONE (10:12)
[2023-09-27] MEDS: ZOFRAN INJ 4 MG VIAL ONE (10:12)
[2023-09-27] MEDS: DECADRON INJ ONE (10:12)
[2023-09-27] MEDS: VERSED ONE (10:12)
[2023-09-27] MEDS: QUELICIN (OR ANECTINE) ONE (10:12)
[2023-09-27] MEDS: ZEMURON 100 MG VIAL ONE (10:12)
[2023-09-27] MEDS: TORADOL 30 MG VIAL ONE (10:12)
[2023-09-27] MEDS ORDERED: SUPRANE ONE (10:14)
[2023-09-27] MEDS: BACTROBAN TOPICAL OINT ONE (10:55)
[2023-09-27] MEDS ORDERED: REGLAN INJ 10 MG VIAL IVP PRN (11:29)
[2023-09-27] MEDS ORDERED: BENADRYL INJ 50 MG VIAL IVP PRN (11:29)
[2023-09-27] MEDS ORDERED: BARHEMSYS INJ IVP PRN (11:29)
[2023-09-27] MEDS ORDERED: DILAUDID INJ IVP PRN (11:29)
[2023-09-27] MEDS ORDERED: ZOFRAN INJ 4 MG VIAL IVP PRN (11:29)
[2023-09-27] MEDS: BARHEMSYS INJ ONE (12:00)
[2023-09-27] MEDS: DILAUDID INJ ONE (12:00)
[2023-09-27] MEDS ORDERED: DILAUDID INJ ONE (12:33)
[2023-09-27] MEDS: DILAUDID INJ IVP PRN (12:41)
[2023-09-27] MEDS: D5 1/2 NS 1,000 ML 1,000 ML IV SCH (12:43)
[2023-09-27] MEDS ORDERED: NS IRRIGATION* 3,000 ML ONE (14:15)
[2023-09-27] MEDS: ZOFRAN INJ 4 MG VIAL IVP PRN (19:25)
[2023-09-27] MEDS: MAG-OX TAB PO SCH (20:47)
[2023-09-27] MEDS: K-DUR TAB 20 MEQ PO SCH (20:47)
[2023-09-28 07:21] LABS: BASOPHILS % (AUTO) 0.4 % (0.2-1.0); HEMATOCRIT 36.1 % (36.0-47.0); HEMOGLOBIN 11.8 g/dL (12.0-16.0); LYMPHOCYTES # (AUTO) 1.5 X10^3/uL (1.3-2.9); LYMPHOCYTES % (AUTO) 14.1 % (21.0-51.0); MEAN CORPUSCULAR HEMOGLOBIN 28.9 pg (27.0-34.0); MEAN CORPUSCULAR HGB CONC 32.8 g/dL (33.0-35.0); MEAN CORPUSCULAR VOLUME 88.2 fL (80.0-100.0); MEAN PLATELET VOLUME 11.2 fL (7.4-11.0); MONOCYTES # (AUTO) 0.6 x10^3/uL (0.3-0.8); MONOCYTES % (AUTO) 5.9 % (0.0-13.0); NEUTROPHILS # (AUTO) 8.6 x10^3/uL (2.2-4.8); NEUTROPHILS % (AUTO) 79.6 % (42.0-75.0); PLATELET COUNT 183 X10^3/uL (150.0-450.0); RED BLOOD COUNT 4.09 X10^6/uL (3.5-5.4); RED CELL DISTRIBUTION WIDTH 13.5 % (11.6-16.5); WHITE BLOOD COUNT 10.9 X10^3/uL (3.6-10.0)
[2023-09-28 07:37] LABS: ALANINE AMINOTRANSFERASE 20 Units/L (12-78); ALBUMIN 2.7 g/dL (3.4-5.0); ALKALINE PHOSPHATASE 63 Units/L (46-116); ASPARTATE AMINO TRANSFERASE 19 Units/L (15-37); BLOOD UREA NITROGEN 3 mg/dL (7-18); CALCIUM 8.5 mg/dL (8.5-10.1); CARBON DIOXIDE 29.1 mmol/L (21-32); CHLORIDE 105 mmol/L (98-107); COR CA(FOR HYPOALB) 9.5 mg/dL (8.5-10.1); COR NA(FOR HYPERGLY) 142 mmol/L (136-145); CREATININE 0.74 mg/dL (0.55-1.02); GLUCOSE 122 mg/dL (65-99); SODIUM 141 mmol/L (136-145); TOTAL PROTEIN 6.8 g/dL (6.4-8.2); eGFR NON BLACK RACES > 60 (>60)
[2023-09-28 08:37] VITALS: BP 124/81; PULSE 72; RESP 19; TEMP 97.2; O2SAT 94
== END 2023-09-28 12:04 | disposition home or self-care (01) ==
LOC: ICU 12:37 → ER 12:37 → ICU 17:46 → MED/SURG 09-27 18:08
PROVIDERS: ADMIT Surgery; ATTEND Surgery
DX: R10.31 Right lower quadrant pain; K80.12 Calculus of gallbladder with acute and chronic cholecystitis without obstruction; Z01.810 Encounter for preprocedural cardiovascular examination; R10.84 Generalized abdominal pain; K82.8 Other specified diseases of gallbladder